=== PATIENT | female | born 1950 | race Caucasian/White ===

== ENCOUNTER → 2016-03-31 | Outpatient (CLI) | payer OTHER ==
--- NOTE | 2016-03-31 16:09 | CT ---
Unenhanced CT Scan of the Chest CLINICAL HISTORY: 66-year-old female with no prior tobacco use history although a personal history of melanoma who presents for follow up of two tiny right middle lobe noncalcified nodules. TECHNIQUE: A multidetector unenhanced helical CT scan was obtained from the base of the neck inferior ly to the upper abdomen, with images reformatted at 2.50 and 1.25 mm increments, and reviewed a varie ty of window and level settings. Sagittal and paracoronal reconstructed images are reviewed on the wo rkstation. The DFOV is 38 cm. At dose reduction protocol was used. COMPARISON STUDY: Unenhanced CT imaging of the chest, dated November 27, 2014. FINDINGS: There are tiny calcified granulomata seen in the left upper lobe on series 3, images 45 and 91, in the posterior right middle lobe on series 3, image 136, and in the superior segment of the ri ght lower lobe on series 3, image 128. There is a 2 mm noncalcified nodule laterally in the right mid dle lobe on series 3, image 98, and a stable 3 mm subpleural nodule anterolaterally in the right midd le lobe on series 3, image 121. There is no new pulmonary nodule, nor is there any new focal alveolar consolidation, pleural effusion, or adenopathy. The visualized portions of the thyroid gland are unr emarkable. There is mild mediastinal lipomatosis. The thoracic aortic contour is normal. There is balbir e minimal LAD coronary artery calcification. There is no pericardial effusion. The upper abdomen is n otable for a mild degree of hepatic steatosis. There is some involutional atrophy of the pancreas. Th e adrenal glands are normal in size. The osseous structures are age-appropriate. There is a mild sigm oid-shaped [id number] thoracic scoliosis with degenerative changes. The subcutaneous tissues are no rmal. IMPRESSION: No interval change from November 27, 2014.
== END ==
LOC: CIMAGING 13:06
PROVIDERS: ATTEND Family Medicine
DX: R91.8 Other nonspecific abnormal finding of lung field (principal)
CPT/HCPCS: 71250-PO

== ENCOUNTER → 2016-09-23 | Outpatient (CLI) | payer OTHER | LOC: FIMAGING 15:35 | PROVIDERS: ATTEND Family Medicine | DX: Z12.31 Encounter for screening mammogram for malignant neoplasm of breast (principal) | CPT/HCPCS: G0202 ==

== ENCOUNTER → 2017-09-21 | Outpatient (CLI) | payer OTHER | LOC: FIMAGING 17:49 | PROVIDERS: ATTEND Psychiatry & Neurology Neurology | DX: R90.82 White matter disease, unspecified (principal) ==

== ENCOUNTER → 2017-09-25 | Outpatient (CLI) | payer OTHER | LOC: CIMAGING 08:08 | PROVIDERS: ATTEND Family Medicine | DX: Z12.31 Encounter for screening mammogram for malignant neoplasm of breast (principal) ==